=== PATIENT | female | born 1995 | race Caucasian/White ===

== ENCOUNTER 2020-12-20 02:48 | Emergency (ER) | payer OTHER, SELFPAY ==
--- OUTSIDE RECORDS SUMMARY | 2020-12-20 02:51 | XMS REPORT | Continuity of Care Document ---
:1995 Author Organization [facility] t Address [address] [place] [address] Care Team Providers Name Role Phone Asked, Pcp Primary Care Physician Unavailable Mecca Marin RN Attending Clinician Unavailable Iva DOBBINS Attending Clinician Unavailable Matthew Parsons DO Attending Clinician AkinsiCoretta Mendoza Attending Clinician Problems This patient has no known problems. Allergies, Adverse Reactions, Alerts This patient has no known allergies or adverse reactions. Social History Social Habit Start Date Stop Date Quantity Comments Source Tobacco use and 2017-10-09 2017-10-09 Never used [facility] 00[facility]00 [facility] Alcohol intake 2017-10-09 2017-10-09 Current [facility] 00:00:00 00:00:00 non-drinker of Hospital alcohol (finding) Sex Assigned At [birth year] [facility] Smoking Status Start Date Stop Date Source Never smoker [facility] Medications Ordered Filled Start Stop Current Ordering Indication Dosage Frequency Signature Comments Components Source Medication Medication Date Date Medication? Clinician (SIG) Name Name No known No [facility] Procedures This patient has no known procedures. Encounters Start End Encounter Admission Attending Care Care Encounter Source Date/Time Date/Time Type Type Clinicians Facility Department ID 2020-12-19 2020-12-19 Nurse Mecca WILLOUGHBY [id number] 00:00:00 00:00:00 Triage JAIRO Marin [id number] [facility] [id number] 2020-09-24 2020-09-24 Nurse Jenniffer Enrique [id number] 00:00:00 00:00:00 Triage JAIRO [id number] [facility] [id number] 2020-08-13 2020-08-13 Patient Issa RUST [id number] 00:00:00 00:00:00 Outreach [facility] [id number] [facility] [id number] [facility] [id number] 2020-03-11 2020-03-11 Office Kameron RUST [id number] 13:18:38 15:07:46 Visit Marquita Hitchcock [facility] [id number] [facility] [id number] MATERNAL [id number] & CHILD [address] [place] [address] Results This patient has no known results.
--- NOTE | 2020-12-20 03:25 | EDPHYS ---
Physician Documentation [facility] Name: Lyndsay Woodall Age: 25 yrs Sex: Female : 1995 Arrival Date: 12/20/2020 Time: 02:54 Bed 4 Private MD: ED Physician Shaila Ruiz HPI: 12/20 03:22 This 25 yrs old Female presents to ER via Ambulatory with complaints of Rash. ma2 03:22 The patient's rash thought to be caused by allergies. The rash can be described as ma2 diffuse, macular, patchy, urticarial. Onset: The symptoms/episode began/occurred gradually, 3 day(s) ago. Associated signs and symptoms: Pertinent negatives: burning sensation, difficulty breathing, itching, swelling of lips, swelling of throat, swelling of tongue. Severity of symptoms: At their worst the symptoms were mild in the emergency department the symptoms are unchanged. The patient has experienced a previous episode. 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 - Social history:: Smoking status: Patient denies any tobacco usage or history of. - Family history:: not pertinent. ROS: 03:22 Constitutional: Negative for fever, chills, and weight loss. ma2 03:22 All other systems are negative. Exam: 03:22 Constitutional: This is a well developed, well nourished patient who is awake, alert, ma2 and in no acute distress. Head/Face: Normocephalic, atraumatic. Eyes: Pupils equal round and reactive to light, extra-ocular motions intact. Lids and lashes normal. Conjunctiva and sclera are non-icteric and not injected. Cornea within normal limits. Periorbital areas with no swelling, redness, or edema. ENT: Nares patent. No nasal discharge, no septal abnormalities noted. Tympanic membranes are normal and external auditory canals are clear. Oropharynx with no redness, swelling, or masses, exudates, or evidence of obstruction, uvula midline. Mucous membranes moist. Neck: Trachea midline, no thyromegaly or masses palpated, and no cervical lymphadenopathy. Supple, full range of motion without nuchal rigidity, or vertebral point tenderness. No Meningismus. Chest/axilla: Normal chest wall appearance and motion. Nontender with no deformity. No lesions are appreciated. Cardiovascular: Regular rate and rhythm with a normal S1 and S2. No gallops, murmurs, or rubs. Normal PMI, no JVD. No pulse deficits. Respiratory: Lungs have equal breath sounds bilaterally, clear to auscultation and percussion. No rales, rhonchi or wheezes noted. No increased work of breathing, no retractions or nasal flaring. Abdomen/GI: Soft, non-tender, with normal bowel sounds. No distension or tympany. No guarding or rebound. No evidence of tenderness throughout. Skin: diffuse hives, all over, Warm, dry with normal turgor. Normal color with and no evidence of cellulitis. MS/ Extremity: Pulses equal, no cyanosis. Neurovascular intact. Full, normal range of motion. Neuro: Awake and alert, GCS 15, oriented to person, place, time, and situation. Cranial nerves II-XII grossly intact. Motor strength 5/5 in all extremities. Sensory grossly intact. Cerebellar exam normal. Normal gait. Vital Signs: 03:08 BP 122 / 83; Pulse 93; Resp 16 S; Temp 98(O); Pulse Ox 99% on R/A; Weight 104.33 kg bb (R); Height 5 ft. 9 in. (175.26 cm) (R); Pain 0/10; 03:08 Body Mass Index 33.96 (104.33 kg, 175.26 cm) bb MDM: 03:12 Patient medically screened. ma2 03:22 Differential diagnosis: impetigo, varicella, allergic reaction, parasite infection. ma2 Data reviewed: vital signs, nurses notes. Counseling: I had a detailed discussion with the patient and/or guardian regarding: the historical points, exam findings, and any diagnostic results supporting the discharge/admit diagnosis, the presence of at least one elevated blood pressure reading (>120/80) during this emergency department visit, the need for outpatient follow up. Response to treatment: the patient's symptoms have markedly improved after treatment. Administered Medications: 03:37 Drug: Benadryl (diphenhydrAMINE) 25 mg Route: IM; Site: right deltoid; ea 03:38 Follow up: Response: Medication administered at discharge. ea 03:37 Drug: SOLU-Medrol (methylPREDNISolone sodium succinate) 125 mg Route: IM; Site: left ea deltoid; 03:37 Follow up: Response: Medication administered at discharge. ea 03:37 Drug: Pepcid (famotidine) 20 mg Route: PO; ea 03:37 Follow up: Response: Medication administered at discharge. ea Disposition Summary: 12/20/20 03:24 Discharge Ordered Location: Home ma2 Condition: Stable ma2 Diagnosis - Rash and other nonspecific skin eruption ma2 Followup: ma2 - With: Private Physician - When: Tomorrow - Reason: Continuance of care Discharge Instructions: - Discharge Summary Sheet ma2 - Rash, Adult, [id number] ma2 Forms: - Medication Reconciliation Form ma2 - Thank You Letter ma2 - Antibiotic Education ma2 - Prescription Opioid Use ma2 Prescriptions: - Benadryl 25 mg Oral Capsule - take 1 capsule by ORAL route every 6 hours As needed; 30 tablet; Refills: 0, ma2 Product Selection Permitted - Medrol (Lukas) 4 mg Oral Tablets, Dose Pack - take 1 tablet by ORAL route as directed - follow package instructions; 1 ma2 packet; Refills: 0, Product Selection Permitted - Pepcid 20 mg Oral Tablet - take 1 tablet by ORAL route once daily for 10 days; 10 tablet; Refills: 0, ma2 Product Selection Permitted Signatures: Faith William RN RN bb Antunez, Elena, RN RN ea Alzahri, Mohammad, MD MD ma2
--- NOTE | 2020-12-20 03:25 | ER ---
Nurse's Notes [facility] Name: Lyndsay Woodall Age: 25 yrs Sex: Female : 1995 Arrival Date: 12/20/2020 Time: 02:54 Bed 4 Private MD: Diagnosis: Rash and other nonspecific skin eruption Presentation: 12/20 03:08 Chief complaint: Patient states: she has had a rash x 4 days which is very itchy she is bb not sure what it is from. Coronavirus screen: At this time, the client does not indicate any symptoms associated with coronavirus-19. Ebola Screen: No symptoms or risks identified at this time. Initial Sepsis Screen: Does the patient meet any 2 criteria? No. Patient's initial sepsis screen is negative. Does the patient have a suspected source of infection? No. Patient's initial sepsis screen is negative. Risk Assessment: Do you want to hurt yourself or someone else? Patient reports no desire to harm self or others. Onset of symptoms was December 16, 2020. 03:08 Method Of Arrival: Ambulatory bb 03:08 Acuity: SOHEILA 4 bb Triage Assessment: 03:10 General: Appears in no apparent distress. Behavior is calm, cooperative. Pain: Denies bb pain. Neuro: Level of Consciousness is awake, alert, obeys commands, Oriented to person, place, time, situation. Cardiovascular: Capillary refill < 3 seconds Patient's skin is warm and dry. Respiratory: Respiratory effort is even, unlabored, Respiratory pattern is regular. GI: No signs and/or symptoms were reported involving the gastrointestinal system. Derm: Rash noted that is urticaria. Musculoskeletal: Circulation, motion, and sensation intact. 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 - Social history:: Smoking status: Patient denies any tobacco usage or history of. - Family history:: not pertinent. Screenin:38 Abuse screen: Denies threats or abuse. Nutritional screening: No deficits noted. ea Tuberculosis screening: No symptoms or risk factors identified. Fall Risk None identified. Assessment: 03:38 General: Appears in no apparent distress. comfortable, Behavior is calm, cooperative, ea appropriate for age. Pain: Denies pain. Neuro: Level of Consciousness is awake, alert, obeys commands, Oriented to person, place, time, situation. Cardiovascular: Patient's skin is warm and dry. Respiratory: Airway is patent Respiratory effort is even, unlabored, Respiratory pattern is regular, symmetrical. GI: No signs and/or symptoms were reported involving the gastrointestinal system. : No signs and/or symptoms were reported regarding the genitourinary system. EENT: No signs and/or symptoms were reported regarding the EENT system. Derm: Skin is intact, Skin is pink, warm \T\ dry. Rash noted that is itchy, red, raised. Musculoskeletal: Circulation, motion, and sensation intact. Range of motion: intact in all extremities. Vital Signs: 03:08 BP 122 / 83; Pulse 93; Resp 16 S; Temp 98(O); Pulse Ox 99% on R/A; Weight 104.33 kg bb (R); Height 5 ft. 9 in. (175.26 cm) (R); Pain 0/10; 03:08 Body Mass Index 33.96 (104.33 kg, 175.26 cm) bb ED Course: 02:54 Patient arrived in ED. es 03:10 Triage completed. bb 03:10 Arm band placed on Patient placed in an exam room, on a stretcher. bb 03:12 Shaila Ruiz MD is Attending Physician. ma2 03:16 Aamir Luna, SHILPI is Primary Nurse. jb4 03:38 Patient has correct armband on for positive identification. Placed in gown. Bed in low ea position. Call light in reach. Side rails up X 1. 03:38 No provider procedures requiring assistance completed. Patient did not have IV access ea during this emergency room visit. Administered Medications: 03:37 Drug: Benadryl (diphenhydrAMINE) 25 mg Route: IM; Site: right deltoid; ea 03:38 Follow up: Response: Medication administered at discharge. ea 03:37 Drug: SOLU-Medrol (methylPREDNISolone sodium succinate) 125 mg Route: IM; Site: left ea deltoid; 03:37 Follow up: Response: Medication administered at discharge. ea 03:37 Drug: Pepcid (famotidine) 20 mg Route: PO; ea 03:37 Follow up: Response: Medication administered at discharge. abril Outcome: 03:24 Discharge ordered by . [email or web address] 03:38 Discharged to home ambulatory. ea 03:38 Condition: stable 03:38 Discharge instructions given to patient, Instructed on discharge instructions, follow up and referral plans. medication usage, Demonstrated understanding of instructions, follow-up care, medications, Prescriptions given X 3. 03:39 Patient left the ED. ea Signatures: Allie Husain Brenda, RN RN Aamir Rocha RN RN jb4 Felicity Márquez RN RN Shaila Martin MD MD ma2
[2020-12-20] MEDS ORDERED: METHYLPREDNISOLONE 125 MG INJ ONE (03:49)
[2020-12-20] MEDS ORDERED: DIPHENHYDRAMINE 50 MG/ML VIAL ONE (03:50)
[2020-12-20] MEDS ORDERED: FAMOTIDINE 20 MG TAB ONE (03:50)
[2020-12-20 05:57] VITALS: BP 122/83; TEMP 98; O2SAT 99
== END 2020-12-20 03:39 | disposition home or self-care (01) ==
LOC: ER 02:48
DX: L50.9 Urticaria, unspecified (principal)
CPT/HCPCS: 96372; 99283; J1200; J2930